=== PATIENT | male | born 1985 | race African-American/Black ===

== ENCOUNTER 2021-07-28 20:26 | Emergency (ER) | payer MEDICAID, OTHER ==
[~2021-07-28] VITALS: Ht 177.8 cm; Wt 70.3 kg
[2021-07-29] MEDS ORDERED: HYDROcodone-ACET 10/325MG TAB PO ONE
[2021-07-29] MEDS ORDERED: IBU600T PO (00:40)
[2021-07-29] MEDS ORDERED: MORPHINE SULFATE 4 MG/ML SYR/VIAL IV ONE (02:00)
[2021-07-29] MEDS ORDERED: ONDANSETRON HCL 4 MG/2 ML VIAL IV ONE (02:00)
[2021-07-29 02:51] VITALS: BP 137/87
== END 2021-07-29 04:11 | disposition short-term general hospital (02) ==
LOC: EDBD 20:26 → ER 20:35
DX: S82.201A Unspecified fracture of shaft of right tibia, initial encounter for closed fracture (principal); S00.81XA Abrasion of other part of head, initial encounter; F17.210 Nicotine dependence, cigarettes, uncomplicated; R51.9 Headache, unspecified; F12.10 Cannabis abuse, uncomplicated; V43.52XA Car driver injured in collision with other type car in traffic accident, initial encounter; Y93.89 Activity, other specified; Y92.488 Other paved roadways as the place of occurrence of the external cause; Y99.8 Other external cause status
CPT/HCPCS: 29505; 70450; 72125; 73562; 73590; 99285; J2270; J2405

== ENCOUNTER 2021-10-17 11:09 | Inpatient (IN) | payer MEDICAID ==
[~2021-10-17] VITALS: Ht 180.3 cm; Wt 73.0 kg
[~2021-10-17 11:09] MED LIST: IBU600T PO
[2021-10-17] MEDS ORDERED: KETOROLAC TROMETH 30 MG/ML 1ML VIAL IV ONE (11:15)
[2021-10-17] MEDS ORDERED: ONDANSETRON HCL 4 MG/2 ML VIAL IV ONE ×2 (11:15→13:30)
[2021-10-17] MEDS ORDERED: SODIUM CHLORIDE 0.9% 1,000 ML IVB ONE (11:15)
[2021-10-17 13:17] LABS: Basophils # (auto) 0.1 10 ^3/uL (0-0.2); Basophils % (auto) 0.6 % (0.0-2.0); Eosinophils # (auto) 0.1 10 ^3/uL (0-0.8); Eosinophils % (auto) 0.6 % (0.0-7.0); Hematocrit 38.7 % (41.0-53.0); Hemoglobin 13.1 g/dL (13.5-17.5); Lymphocytes # (auto) 1.2 10 ^3/uL (0.4-5.4); Lymphocytes % (auto) 11.8 % (10.0-50.0); Mean Corpuscular Hemoglobin 30.5 pg (28.0-32.0); Mean Corpuscular Hgb Conc. 33.8 g/dL (32.0-36.0); Mean Corpuscular Volume 90.2 fL (80.0-100.0); Monocytes # (auto) 0.4 10 ^3/uL (0-1.3); Monocytes % (auto) 3.9 % (0.0-12.0); Neutrophils # (auto) 8.3 10 ^3/uL (1.6-8.6); Neutrophils % (auto) 83.1 % (37.0-80.0); Red Blood Cells 4.29 10^6/uL (4.5-5.90); Red Cell Distribution Width 14.3 % (11.8-14.3)
[2021-10-17 13:29] LABS: Albumin 4.1 g/dL (3.4-5.0); BUN/Creatinine Ratio 10.7; Calcium 9.1 mg/dL (8.5-10.1); Potassium 4.4 mmol/L (3.5-5.1)
[2021-10-17] MEDS ORDERED: HYDROmorphone HCL 2 MG/ML VL IV ONE (13:30)
[2021-10-17 13:32] LABS: Bilirubin, Total 0.5 mg/dL (0.2-1.0); Total Protein 7.6 g/dL (6.4-8.2)
[2021-10-17 15:11] LABS: Urine Bacteria FEW /hpf (None Seen); Urine Blood 1+ /uL (Negative); Urine Mucus FEW (None Seen); Urine Specific Gravity 1.027 (1.001-1.035); Urine WBC 2 /hpf (0 - 3)
[2021-10-17] MEDS ORDERED: SOD CHL 0.45% 1,000 ML IV ONE (17:15)
[2021-10-17] MEDS ORDERED: SODIUM CHLORIDE 0.9% 2,000 ML IV ONE (17:15)
[2021-10-17] MEDS ORDERED: DEXTROSE (50%) 50ML SYRG IV PRN (17:30)
[2021-10-17] MEDS ORDERED: NITROGLYCERIN 0.4 MG SL TAB SL PRN (17:30)
[2021-10-17] MEDS ORDERED: MANNITOL FTV 25% 12.5 GM/50 ML 50 ML IV ONE (19:15)
[2021-10-17] MEDS: MORPHINE SULFATE 4 MG/ML SYR/VIAL IV PRN ×2 (19:25→23:23)
[2021-10-17 20:19] VITALS: BP 131/77
[2021-10-17] MEDS ORDERED: ASPI325T4 PO (20:56)
[2021-10-17 22:00] VITALS: BP 109/63
[2021-10-17] MEDS: InsuLIN REG 1unit/0.01ml Soln (100units/ml) SC SCH (22:00)
[2021-10-17] MEDS: ACCU-CHEK COMFORT CURVE STRIP VI SCH (23:22)
[2021-10-18] MEDS: MORPHINE SULFATE 4 MG/ML SYR/VIAL IV PRN ×4 (03:35→22:33)
[2021-10-18 05:00] VITALS: BP 110/56
[2021-10-18 05:43] LABS: Basophils # (auto) 0.1 10 ^3/uL (0-0.2); Basophils % (auto) 0.6 % (0.0-2.0); Eosinophils # (auto) 0 10 ^3/uL (0-0.8); Eosinophils % (auto) 0.3 % (0.0-7.0); Hematocrit 35.2 % (41.0-53.0); Lymphocytes # (auto) 1.2 10 ^3/uL (0.4-5.4); Mean Corpuscular Hemoglobin 30.6 pg (28.0-32.0); Mean Corpuscular Volume 89.9 fL (80.0-100.0); Monocytes # (auto) 0.7 10 ^3/uL (0-1.3); Monocytes % (auto) 7.7 % (0.0-12.0); Neutrophils # (auto) 7.5 10 ^3/uL (1.6-8.6); Neutrophils % (auto) 78.4 % (37.0-80.0); Red Blood Cells 3.92 10^6/uL (4.5-5.90); Red Cell Distribution Width 14.3 % (11.8-14.3); White Blood Cell 9.5 10^3/uL (4.4-10.8)
[2021-10-18 05:53] LABS: Potassium 4.1 mmol/L (3.5-5.1)
[2021-10-18 05:59] LABS: Albumin 3.2 g/dL (3.4-5.0); BUN/Creatinine Ratio 8.5; Calcium 8.4 mg/dL (8.5-10.1)
[2021-10-18 06:01] LABS: Bilirubin, Total 0.6 mg/dL (0.2-1.0); Total Protein 6.1 g/dL (6.4-8.2)
[2021-10-18] MEDS: InsuLIN REG 1unit/0.01ml Soln (100units/ml) SC SCH ×4 (06:27→22:00)
[2021-10-18] MEDS: ACCU-CHEK COMFORT CURVE STRIP VI SCH ×4 (06:27→22:32)
[2021-10-18 09:00] VITALS: BP 108/62
[2021-10-18] MEDS: cefTRIAXone 1GM/50ML D5W 50 ML IV SCH (09:01)
[2021-10-18] MEDS: ENOXAPARIN SOD 40 MG/0.4 ML SYRINGE SC SCH (09:02)
[2021-10-18] MEDS ORDERED: MANNITOL FTV 25% 12.5 GM/50 ML 50 ML IV ONE (12:30)
[2021-10-18 13:00] VITALS: BP 98/56
[2021-10-18 17:00] VITALS: BP 107/51
[2021-10-18 22:00] VITALS: BP 135/81
[2021-10-19 05:00] VITALS: BP 117/65
[2021-10-19] MEDS: MORPHINE SULFATE 4 MG/ML SYR/VIAL IV PRN ×2 (06:00→15:21)
[2021-10-19] MEDS: ACCU-CHEK COMFORT CURVE STRIP VI SCH ×3 (06:00→18:14)
[2021-10-19] MEDS: InsuLIN REG 1unit/0.01ml Soln (100units/ml) SC SCH ×3 (06:00→17:00)
[2021-10-19 09:12] VITALS: BP 110/65
[2021-10-19] MEDS: ENOXAPARIN SOD 40 MG/0.4 ML SYRINGE SC SCH (09:43)
[2021-10-19] MEDS: cefTRIAXone 1GM/50ML D5W 50 ML IV SCH (09:43)
[2021-10-19 13:00] VITALS: BP 102/55
[2021-10-19] MEDS ORDERED: SODIUM CHLORIDE 0.9% 1,000 ML IV SCH (16:30)
[2021-10-19] MEDS ORDERED: OXYCODONE W/ ACETAMINOPHEN 5/325MG TABLET PO PRN ×2 (16:30→16:45)
[2021-10-19] MEDS ORDERED: SODIUM CHLORIDE 0.9% 1,000 ML IV ONE (16:30)
[2021-10-19 17:14] VITALS: BP 111/66
[2021-10-19] MEDS ORDERED: FUROSEMIDE 20 MG/2 ML VIAL IV SCH (18:00)
[2021-10-19] MEDS ORDERED: TAMSULOSIN HYDROCHLORIDE 0.4 MG CAP PO SCH (18:00)
[2021-10-19] MEDS ORDERED: PERCOT PO (18:49)
[2021-10-19] MEDS ORDERED: TAM04C PO (18:49)
== END 2021-10-19 19:40 | disposition home or self-care (01) | DRG 465 ==
LOC: EDBD 11:09 → ER 11:09 → OVERFLOW 17:17 → WEST WING 19:43
PROVIDERS: ADMIT Internal Medicine; ATTEND Internal Medicine
DX: N20.2 Calculus of kidney with calculus of ureter (principal); F17.210 Nicotine dependence, cigarettes, uncomplicated; I10 Essential (primary) hypertension; N13.9 Obstructive and reflux uropathy, unspecified; Z20.822 Contact with and (suspected) exposure to COVID-19; Z79.82 Long term (current) use of aspirin; Z87.442 Personal history of urinary calculi
CPT/HCPCS: 36415; 74176; 80053; 81001; 82962; 85025; 87081; 96361; 96374; 96375; 96376; G0378; J0696; J1885; J2405

== ENCOUNTER 2021-11-21 11:49 | Emergency (ER) | payer MEDICAID ==
[~2021-11-21] VITALS: Ht 180.3 cm; Wt 57.5 kg
[~2021-11-21 11:49] MED LIST changes: -IBU600T PO; +PERCOT PO; +TAM04C PO
[2021-11-21] MEDS ORDERED: HYDROcodone-ACET 5/325MG TAB PO ONE (12:30)
[2021-11-21 17:34] VITALS: BP 110/70
== END 2021-11-21 17:48 | disposition short-term general hospital (02) ==
LOC: ER 11:49
DX: L02.415 Cutaneous abscess of right lower limb (principal); F17.210 Nicotine dependence, cigarettes, uncomplicated; Z98.890 Other specified postprocedural states; Z79.899 Other long term (current) drug therapy

== ENCOUNTER 2022-04-26 09:16 | Emergency (ER) | payer MEDICAID ==
[~2022-04-26] VITALS: Ht 180.3 cm; Wt 67.1 kg
[2022-04-26 09:33] VITALS: BP 127/78
== END 2022-04-26 17:12 | disposition left against medical advice (07) ==
LOC: ER 09:16
DX: L02.415 Cutaneous abscess of right lower limb (principal); Z53.21 Procedure and treatment not carried out due to patient leaving prior to being seen by health care provider